=== PATIENT | female | born 1975 | race Caucasian/White ===

== ENCOUNTER 2017-08-18 08:17 | Emergency (ER) | payer OTHER ==
--- NOTE | 2017-08-18 09:15 | ED PDOC ---
Lower Extremity Pain/Injury Time Seen by Provider: 08/18/17 08:57 Chief Complaint (Nursing): Lower Extremity Problem/Injury History Per: Patient History/Exam Limitations: no limitations Severity: Mild - Ankle/Foot Description Of Injury: Struck Against Object (patient states that she struck her 4th and 5th toes of the right foot against the stationary part of the bed last night. She has pain this morning and wants to make sure she has not broken any bones.) Past Medical History Reviewed: Historical Data, Nursing Documentation, Vital Signs - Medical History PMH: No Chronic Diseases - Surgical History Surgical History: No Surg Hx - Family History Family History: States: No Known Family Hx - Living Arrangements Living Arrangements: With Family - Home Medications Home Medications: Ambulatory Orders Medication Instructions Recorded Aspirin [Aspirin Low Dose] 81 mg PO DAILY #15 ect 10/19/14 - Allergies Allergies/Adverse Reactions: Allergies Allergy/AdvReac Type Severity Reaction Status Date / Time No Known Allergies Allergy Verified 10/19/14 00:49 Review of Systems ROS Statement: Except As Marked, All Systems Reviewed And Found Negative Constitutional: Negative for: Fever Musculoskeletal: Positive for: Foot Pain Physical Exam - Reviewed Nursing Documentation Reviewed: Yes Vital Signs Reviewed: Yes - Physical Exam Appears: Positive for: Well, Non-toxic, No Acute Distress Skin: Positive for: Normal Color, Warm, DRY Eye Exam: Positive for: Normal appearance, EOMI Neck: Positive for: Normal, Painless ROM Respiratory: Negative for: Respiratory Distress Extremity: Positive for: Normal ROM, Tenderness (4th and 5th toes, both flexed) - Laboratory Results Urine POC: Negative Disposition - Clinical Impression Clinical Impression: Contusion of toe - Patient ED Disposition Is Patient to be Admitted: No Doctor Will See Patient In The: Office Counseled Patient/Family Regarding: Diagnosis, Need For Followup - Disposition Disposition: Routine/Home Disposition Time: 10:45 Condition: STABLE Instructions: Contusion in Adults (ED) Forms: [employer] ([place]ish), [facility] ED School/Work Excuse - POA Present On Arrival: Falls Or Trauma
--- NOTE | 2017-08-18 10:09 | RAD ---
PROCEDURE: Right Foot Radiographs. HISTORY: blunt trauma to 4th and 5th toe COMPARISON: None. FINDINGS: BONES: No fracture JOINTS: 1st metatarsal joint space narrowing -osteoarthrosis SOFT TISSUES: Normal. OTHER FINDINGS: None. IMPRESSION: 1st metatarsal joint space narrowing -osteoarthrosis. No fracture or lytic lesion
[2017-08-18 11:41] VITALS: BP 120/70; PULSE 78; RESP 18; TEMP 97.6; O2SAT 98
== END 2017-08-18 11:42 | disposition home or self-care (01) ==
LOC: H.ER 08:17
DX: S99.921A Unspecified injury of right foot, initial encounter (principal); W22.8XXA Striking against or struck by other objects, initial encounter; Y92.89 Other specified places as the place of occurrence of the external cause; Z79.82 Long term (current) use of aspirin